=== PATIENT | male | born 1945 | race Caucasian/White ===

== ENCOUNTER 2024-09-09 19:56 | Emergency (ER) | payer MEDICARE ==
[~2024-09-09] VITALS: Ht 188 cm; Wt 98.2 kg
[2024-09-09] MEDS ORDERED: ETOMIDATE 40 MG/20 ML VIAL IV ONE (20:15)
[2024-09-09 20:18] LABS: BASOPHILS 1.1 % (0.2-1.2); EOSINOPHILS 0 % (0.8-7.0); HEMATOCRIT 30.1 % (40.1-51.0); HEMOGLOBIN 10.6 g/dL (13.7-17.5); LYMPHOCYTES 29.3 % (21.8-53.1); MCH 33.1 PG (25.7-32.2); MCHC 35.2 g/dL (32.3-36.5); MCV 94.1 fL (79.0-92.2); MONOCYTES 11.9 % (5.3-12.2); NEUTROPHILS 55.7 % (34.0-67.9); PLATELET COUNT 181 K/uL (163-337)
[2024-09-09 20:34] LABS: ALBUMIN 3.2 g/dL (3.4-5.0); ALBUMIN/GLOBULIN RATIO 1.19 (1.1-2.4); ANION GAP 10.8 (7-21); BILIRUBIN, TOTAL 1.1 mg/dL (0.2-1.0); CALCIUM 8.3 mg/dL (8.5-10.1); POTASSIUM 2.8 mmol/L (3.5-5.1); PROTEIN, TOTAL 5.9 g/dL (6.4-8.2)
[2024-09-09] MEDS ORDERED: THIAMINE HCL 200 MG/2 ML VIAL IV ONE (20:45)
[2024-09-09] MEDS ORDERED: LACTATED RINGER'S 1,000 ML IV ONE (20:45)
[2024-09-09 20:55] LABS: ABO O; ANTIBODY SCREEN NEGATIVE; RH POSITIVE
[2024-09-09] MEDS ORDERED: TRANEXAMIC ACID IN NACL,ISO-OS 1,000 MG/100 ML PIGGYBACK IV ONE (21:00)
[2024-09-09] MEDS ORDERED: POTASSIUM CHLORIDE 10 MEQ/100 ML BAG IV SCH (21:15)
[2024-09-09] MEDS ORDERED: levETIRAcetam 500 MG/5 ML VIAL IV ONE (21:30)
[2024-09-09 22:20] VITALS: BP 116/88
--- NOTE | 2024-09-10 12:15 | EKG ---
[facility] [address] [facility] [place], [place] [address] Signed Sinus rhythm with occasional premature ventricular complexes Left axis deviation Right bundle branch block Inferior infarct , age undetermined Abnormal ECG Confirmed by Mervin Yap DO ([id number]) on 09/10/2024 12:15:35 PM Electronically Signed By: MERVIN YAP DO 09/10/24 1215 PATIENT NAME: EDGAR SALAZAR Electrocardiogram DATE OF : 47 PHYSICIAN: MERVIN YAP DO REPORT #: [id number] REPORT IS CONFIDENTIAL AND NOT TO BE RELEASED WITHOUT AUTHORIZATION
== END 2024-09-09 22:20 | disposition short-term general hospital (02) ==
LOC: ED 19:56
PROVIDERS: Internal Medicine
DX: S06.6X9A Traumatic subarachnoid hemorrhage with loss of consciousness of unspecified duration, initial encounter (principal); S02.119A Unspecified fracture of occiput, initial encounter for closed fracture; S02.19XA Other fracture of base of skull, initial encounter for closed fracture; X58.XXXA Exposure to other specified factors, initial encounter
CPT/HCPCS: 36415; 70450; 71045; 72125; 80053; 80307; 84484; 85025; 86850; 86900; 86901; 93005; 93010; 96361; 96374; 96375; 99285-25; G0480; J1953; J3411; J3480; J7121